=== PATIENT | female | born 1955 | race Caucasian/White ===

== ENCOUNTER 2018-01-21 19:22 | Emergency (ER) | payer MEDICAID ==
[~2018-01-21] VITALS: Ht 167.6 cm; Wt 75.7 kg
[2018-01-21 19:31] VITALS: Ht 167.6 cm; Wt 75.7 kg
[2018-01-21 21:35] VITALS: BP 164/89
== END 2018-01-21 21:35 | disposition home or self-care (01) ==
LOC: ED 19:22
DX: M25.571 Pain in right ankle and joints of right foot (principal); I10 Essential (primary) hypertension